=== PATIENT | female | born 1975 | race African-American/Black ===

== ENCOUNTER 2018-05-14 17:10 | Emergency (ER) | payer OTHER ==
[~2018-05-14] VITALS: Ht 162.6 cm; Wt 150.0 kg
[2018-05-14] MEDS ORDERED: FOLI200T11 PO (17:16)
[2018-05-14] MEDS: TraMADol HCL 50 MG TABLET PO ONE (18:02)
[2018-05-14 19:02] VITALS: BP 132/85
== END 2018-05-14 19:05 | disposition home or self-care (01) ==
LOC: EMS 17:11
DX: M25.561 Pain in right knee (principal); E66.9 Obesity, unspecified; Z68.43 Body mass index [BMI] 50.0-59.9, adult
CPT/HCPCS: 93971

== ENCOUNTER 2018-09-15 05:31 | Emergency (ER) | payer OTHER ==
[~2018-09-15] VITALS: Ht 162.6 cm; Wt 145.4 kg
[~2018-09-15 05:31] MED LIST: FOLI200T11 PO
[2018-09-15] MEDS ORDERED: IBUPROFEN 600 MG TABLET PO ONE (06:30)
[2018-09-15] MEDS ORDERED: GuaiFENesin/D-METHORPHAN [SUGAR-FREE] 200-20MG/10 ML SYRUP UDCUP PO ONE (06:30)
[2018-09-15] MEDS ORDERED: ACETAMINOPHEN 500 MG TABLET PO ONE (06:30)
[2018-09-15 07:12] VITALS: BP 156/94
== END 2018-09-15 07:26 | disposition home or self-care (01) ==
LOC: EMS 05:34
DX: J06.9 Acute upper respiratory infection, unspecified (principal)
CPT/HCPCS: 93005